=== PATIENT | female | born 1990 | race Caucasian/White ===

== ENCOUNTER 2017-01-29 17:56 | Emergency (ER) | payer MEDICAID, OTHER ==
[2017-01-29 18:03] VITALS: BP 120/78
== END 2017-01-29 18:34 | disposition left against medical advice (07) ==
LOC: ED 17:56
DX: Z53.21 Procedure and treatment not carried out due to patient leaving prior to being seen by health care provider (principal)

== ENCOUNTER 2017-06-09 01:20 | Outpatient (CLI) | payer MEDICAID | END 2017-06-09 01:21 | disposition critical access hospital (66) | LOC: EMS 01:20 | PROVIDERS: ATTEND Surgery | DX: R41.82 Altered mental status, unspecified (principal); Z72.89 Other problems related to lifestyle | CPT/HCPCS: A0425; A0429 ==

== ENCOUNTER 2017-06-09 01:27 | Emergency (ER) | payer MEDICAID ==
--- NOTE | 2017-06-09 02:20 | ED Physician Documentation ---
History of Present Illness - Stated complaint Stated Complaint: ETOH WITHDRAWL - Chief complaint Chief Complaint: MHE - History obtained from History obtained from: Patient - History of Present Illness Timing: Today Pain level now: 0 Improved by: no ameliorating factors Worsened by: no exacerbating factors - Additonal information Additional information: patient has been drinking on average a fifth of alcohol daily for weeks, stopped drinking 2 days ago and has been increasingly anxious and tremulous over past 24 hours. she says she has dealt with alcohol withdrawal previously and this feels similar Review of Systems Cardiac: reports: Reviewed and negative Respiratory: reports: Reviewed and negative GI: reports: Nausea (yesterday, resolved), Vomiting (yesterday, resolved). denies: Abdominal Pain PD PAST MEDICAL HISTORY - Past Medical History Respiratory: Asthma Psych: Depression, Anxiety, Other Derm: Psoriasis - Past Surgical History Past Surgical History: Yes - Present Medications Home Medications: Ambulatory Orders Medication Instructions Recorded Confirmed hydrOXYzine PAMOATE [Vistaril] 25 mg PO BID PRN 01/29/17 01/29/17 chlordiazePOXIDE [Librium] See Taper PO Q6H #15 capsule 06/09/17 - Allergies Allergies/Adverse Reactions: Allergies Allergy/AdvReac Type Severity Reaction Status Date / Time No Known Drug Allergies Allergy Unverified 06/09/17 01:30 - Social History Does the pt smoke?: Yes Smoking Status: Current every day smoker Does the pt drink ETOH?: Yes Does the pt have substance abuse?: No - Immunizations Immunizations are current?: Yes PD ED PE NORMAL - Vitals Vital signs reviewed: Yes - General General: Alert and oriented X 3, Well developed/nourished, Other (tremulous, anxious) - HEENT HEENT: PERRL, EOMI, Moist mucous membranes - Cardiac Cardiac: RRR, No murmur - Respiratory Respiratory: No respiratory distress, Clear bilaterally - Abdomen Abdomen: Soft, Non tender - Neuro Neuro: Alert and oriented X 3, geospatial image analyst 2-12 intact, No motor deficit, No sensory deficit, Normal speech Eye Opening: Spontaneous Motor: Obeys Commands Verbal: Oriented GCS Score: 15 Results - Vitals Vitals: Oxygen O2 Source Room air PD MEDICAL DECISION MAKING - ED course Complexity details: re-evaluated patient, considered differential, d/w patient ED course: given 2mg IM ativan and on reevaluation she appears comfortable and markedly less tremulous. she reports significant symptom relief. given 2mg PO ativan prior to discharge for residual tremulousness as well as rx for tapering librium. I instructed her to not take more librium than as prescribed and not to drink alcohol with librium, and that if she feels the librium as prescribed is not adequately controlling symptoms she needs to return to the ED. Departure - Departure Disposition: 01 Home, Self Care Clinical Impression: Anxiety, Alcohol withdrawal Condition: Good Instructions: ED Withdrawal Alcohol Follow-Up: Eli Andrade MD [Primary Care Provider] - Within 1 week Prescriptions: chlordiazePOXIDE [Librium] See Taper PO Q6H #15 capsule Discharge Date/Time: 06/09/17 04:08
[2017-06-09] MEDS ORDERED: LORazepam 2 MG/ML VIAL IM STA (02:34)
[2017-06-09] MEDS ORDERED: LORazepam 0.5 MG TABLET PO STA (03:49)
[2017-06-09 04:08] VITALS: BP 130/99
== END 2017-06-09 04:08 | disposition home or self-care (01) ==
LOC: EDUNIT# → ED 01:27
DX: F41.9 Anxiety disorder, unspecified (principal); F10.230 Alcohol dependence with withdrawal, uncomplicated; F17.200 Nicotine dependence, unspecified, uncomplicated
CPT/HCPCS: 96372; 99283; A9270; J2060

== ENCOUNTER 2017-12-05 04:24 | Outpatient (CLI) | payer MEDICAID | END 2017-12-05 04:25 | disposition critical access hospital (66) | LOC: EMS 04:24 | PROVIDERS: ATTEND Surgery | DX: T42.6X2A Poisoning by other antiepileptic and sedative-hypnotic drugs, intentional self-harm, initial encounter (principal); T42.4X2A Poisoning by benzodiazepines, intentional self-harm, initial encounter | CPT/HCPCS: A0425; A0427; A0999 ==

== ENCOUNTER 2017-12-05 04:40 | Emergency (ER) | payer MEDICAID ==
--- NOTE | 2017-12-05 04:52 | ED Physician Documentation ---
History of Present Illness - Stated complaint Stated Complaint: SI - History obtained from History obtained from: EMS - History of Present Illness Timing: Today - Additonal information Additional information: BIBA. Patient cannot contribute to HPI/ROS due to AMS. Per medics, patient's boyfriend called 911 because patient told him she might not wake up in the morning due to drinking alcohol and taking pills. Patient told medics she drank a pint of gin and took xanax and 4 ambien. She subsequently denied taking xanax. Review of Systems Unable to obtain: AMS, Intoxicated PD PAST MEDICAL HISTORY - Past Medical History Respiratory: Asthma Psych: Depression, Anxiety, Other Derm: Psoriasis - Past Surgical History Past Surgical History: Yes - Present Medications Home Medications: Ambulatory Orders Medication Instructions Recorded Confirmed hydrOXYzine PAMOATE [Vistaril] 25 mg PO BID PRN 01/29/17 01/29/17 chlordiazePOXIDE [Librium] See Taper PO Q6H #15 capsule 06/09/17 Lorazepam [Ativan] 1 mg PO BID PRN #5 tablet 12/05/17 - Allergies Allergies/Adverse Reactions: Allergies Allergy/AdvReac Type Severity Reaction Status Date / Time No Known Drug Allergies Allergy Unverified 06/09/17 01:30 - Social History Does the pt smoke?: Yes Smoking Status: Current every day smoker Does the pt drink ETOH?: Yes Does the pt have substance abuse?: No - Immunizations Immunizations are current?: Yes PD ED PE NORMAL - Vitals Vital signs reviewed: Yes - General General: No acute distress, Well developed/nourished, Other (drowsy, awakens to voice. oriented x 1) - HEENT HEENT: PERRL, EOMI, Moist mucous membranes - Cardiac Cardiac: RRR, No murmur - Respiratory Respiratory: No respiratory distress, Clear bilaterally - Abdomen Abdomen: Soft, Non tender - Derm Derm: Normal color, Warm and dry - Neuro Eye Opening: To Voice Motor: Obeys Commands Verbal: Confused GCS Score: 13 Results - Vitals Vitals: Vital Signs - 24 hr 12/05/17 04:43 Temperature 36.8 C Heart Rate 89 Respiratory 16 Rate Blood Pressure 108/54 L O2 Saturation 98 Oxygen O2 Source Room air PD MEDICAL DECISION MAKING - ED course Complexity details: reviewed old records, reviewed results, re-evaluated patient, considered differential, d/w patient, d/w family ED course: Patient's fiance came to ED (Juancarlos, goes by "AJ"). He says there was a stressful situation with family earlier tonight that upset patient. He says she locked herself in her room; he heard her crying and was concerned that she was not letting him in the room and thus he forced the lock and found her on the floor with an open prescription bottle and an open bottle of liquor. She told him she thought she might not wake up in the morning because of the liquor she drank and the pills she took. She told him she took ambien, but unknown amount. She also told him she drank liquor (a fifth of liquor, but not all of it was missing from the bottle). He says patient has a h/o alcoholism as well as SI, and was hospitalized last year in [place] (for both alcoholism and SI). He says she has been drinking alcohol for a few days straight (leading up to tonight). Signed case out to oncoming ED MD (Dr. Goodrich) at end of my shift (7 AM 12/05/17), as patient was still too somnolent for further assessment of suicidal intent. Departure - Departure Disposition: 01 Home, Self Care Clinical Impression: Alcoholic intoxication, Anxiety attack Condition: Good Instructions: ED Stress React, ED Alcohol Intoxication Follow-Up: Sangeeta Connors PA-C [Primary Care Provider] - Within 3 Days Prescriptions: Lorazepam [Ativan] 1 mg PO BID PRN #5 tablet PRN Reason: tremors Comments: KEEP YOUR SAFETY PLANS AND PSYCH APPOINTMENTS. TAKE THE ATIVAN TO PREVENT DTs. MAINTAIN SAFETY. IF WORSE RETURN TO THE E.R Forms: Activity restrictions Discharge Date/Time: 12/05/17 14:25
[2017-12-05] MEDS ORDERED: SODIUM CHLORIDE 0.9% 1,000 ML IV STA (05:07)
[2017-12-05 05:31] LABS: BASOPHILS % (AUTO) 0.5 %; EOSINOPHILS # (AUTO) 0.1 10^3/uL (0.0-0.7); EOSINOPHILS % (AUTO) 0.8 %; HGB - HEMOGLOBIN 13.3 g/dL (12.0-16.0); LYMPHOCYTES # (AUTO) 1.9 10^3/uL (1.5-3.5); LYMPHOCYTES % (AUTO) 25.2 %; MEAN CORPUSCULAR HGB CONC 34.4 g/dL (32.0-36.0); MEAN PLATELET VOLUME 7.7 fL (7.9-10.8); MONOCYTES # (AUTO) 0.4 10^3/uL (0.0-1.0); MONOCYTES % (AUTO) 5.8 %; NEUTROPHILS # (AUTO) 5.2 10^3/uL (1.5-6.6); NEUTROPHILS % (AUTO) 67.7 %; PLT - PLATELET COUNT 382 10^3/uL (130-450); RED BLOOD COUNT 4.04 10^6/uL (4.20-5.40); RED CELL DISTRIBUTION WIDTH 14.1 % (12.0-15.0); WHITE BLOOD COUNT 7.7 x10^3/uL (4.8-10.8)
[2017-12-05 05:40] LABS: BUN - BLOOD UREA NITROGEN 11 mg/dL (6-20); CARBON DIOXIDE - CO2 23 mmol/L (21-32); CHLORIDE 106 mmol/L (101-111); CREATININE 0.6 mg/dL (0.4-1.0); GFR - MDRD 120 (>89); GLUCOSE 159 mg/dL (70-100); SALICYLATE < 6.0 mg/dL; SODIUM 139 mmol/L (135-145)
[2017-12-05 06:10] LABS: ACETAMINOPHEN < 10 ug/mL (10-30)
[2017-12-05 08:33] LABS: BILIRUBIN,URINE NEGATIVE (NEGATIVE); GLUCOSE, URINE (UA) 250 mg/dL (NEGATIVE); KETONES,URINE (UA) 15 mg/dL (NEGATIVE); LEUKOCYTE ESTERASE, URINE NEGATIVE (NEGATIVE); NITRITE,URINE NEGATIVE (NEGATIVE); OCCULT BLOOD,URINE NEGATIVE (NEGATIVE); PROTEIN,URINE NEGATIVE (NEGATIVE); UROBILINOGEN,URINE 0.2 (NORMAL) E.U./dL (NORMAL)
[2017-12-05 08:36] LABS: CLARITY,URINE CLEAR (CLEAR); HCG UR QUAL NEGATIVE
[2017-12-05 09:32] LABS: MUDS CUTOFF CONCENTRATIONS CUTOFF CONC BELOW:
[2017-12-05 09:44] LABS: AMPHETAMINE SCREEN,URINE NEGATIVE (NEGATIVE); BENZODIAZEPINES SCREEN, URINE POSITIVE (NEGATIVE); COCAINE SCREEN URINE NEGATIVE (NEGATIVE); METHADONE SCREEN, URINE NEGATIVE (NEGATIVE); METHAMPHETAMINES SCREEN, URINE NEGATIVE (NEGATIVE); OPIATE SCREEN, URINE NEGATIVE (NEGATIVE); OXYCODONE SCREEN, URINE NEGATIVE (NEGATIVE); PROPOXYPHENE SCREEN, URINE NEGATIVE (NEGATIVE); TRICYCLIC ANTIDEPRESSANT,URINE NEGATIVE (NEGATIVE)
--- NOTE | 2017-12-05 13:54 | ED Physician Documentation ---
History of Present Illness - Stated complaint Stated Complaint: SI - Chief complaint Chief Complaint: MHE - History obtained from History obtained from: Patient - History of Present Illness Timing: Last night Pain level max: 0 Pain level now: 0 - Additonal information Additional information: SEE HPI from Dr Bautista who signed out the pt to me this morning. Pt claims drank alcohol and took an ambien pill so she can fall asleep. Denies SI, HI, hallucinations. Review of Systems Ten Systems: 10 systems reviewed and negative Constitutional: denies: Fever, Myalgias Cardiac: denies: Chest pain / pressure, Palpitations Respiratory: denies: Dyspnea, Cough GI: denies: Abdominal Pain, Nausea, Vomiting Neurologic: denies: Generalized weakness Psychiatric: reports: Anxiety, Insomnia. denies: Depressed, Suicidal, Homicidal, Hallucinations PD PAST MEDICAL HISTORY - Past Medical History Respiratory: Asthma Psych: Depression, Anxiety, Other Derm: Psoriasis - Past Surgical History Past Surgical History: Yes - Present Medications Home Medications: Ambulatory Orders Medication Instructions Recorded Confirmed hydrOXYzine PAMOATE [Vistaril] 25 mg PO BID PRN 01/29/17 01/29/17 chlordiazePOXIDE [Librium] See Taper PO Q6H #15 capsule 06/09/17 Lorazepam [Ativan] 1 mg PO BID PRN #5 tablet 12/05/17 - Allergies Allergies/Adverse Reactions: Allergies Allergy/AdvReac Type Severity Reaction Status Date / Time No Known Drug Allergies Allergy Unverified 06/09/17 01:30 - Social History Does the pt smoke?: Yes Smoking Status: Current every day smoker Does the pt drink ETOH?: Yes Does the pt have substance abuse?: No - Immunizations Immunizations are current?: Yes PD ED PE NORMAL - Vitals Vital signs reviewed: Yes - General General: Alert and oriented X 3, No acute distress, Well developed/nourished - HEENT HEENT: PERRL, EOMI, Moist mucous membranes - Neck Neck: Supple, no meningeal sign - Cardiac Cardiac: RRR, No murmur - Respiratory Respiratory: No respiratory distress, Clear bilaterally - Abdomen Abdomen: Normal bowel sounds, Soft, Non tender, Non distended - Derm Derm: Warm and dry - Extremities Extremities: No deformity - Neuro Neuro: Alert and oriented X 3, No motor deficit, Normal speech - Psych Psych: Normal mood, Normal affect Results - Vitals Vitals: Vital Signs - 24 hr 12/05/17 12/05/17 12/05/17 04:43 05:30 06:37 Temperature 36.8 C Heart Rate 89 99 91 Respiratory 16 17 19 Rate Blood Pressure 108/54 L 99/64 98/65 O2 Saturation 98 99 94 12/05/17 12/05/17 08:00 10:00 Temperature Heart Rate 88 98 Respiratory 14 20 Rate Blood Pressure 92/59 L 115/90 H O2 Saturation 98 95 Oxygen O2 Source Room air - Labs Labs: Laboratory Tests 12/05/17 12/05/17 12/05/17 05:20 05:20 08:30 WBC 7.7 RBC 4.04 L Hgb 13.3 Hct 38.8 MCV 96.0 MCH 33.0 H MCHC 34.4 RDW 14.1 Plt Count 382 MPV 7.7 L Neut # (Auto) 5.2 Lymph # (Auto) 1.9 [place] # (Auto) 0.4 Eos # (Auto) 0.1 Baso # (Auto) 0.0 Absolute Nucleated RBC 0.00 Nucleated RBC % 0.0 Sodium 139 Potassium 3.7 Chloride 106 Carbon Dioxide 23 Anion Gap 10.0 BUN 11 Creatinine 0.6 Estimated GFR (MDRD) 120 Glucose 159 H Calcium 8.0 L Urine Color DARK YELLOW Urine Clarity CLEAR Urine pH 6.0 Ur Specific [place] >=1.030 H Urine Protein NEGATIVE Urine Glucose (UA) 250 H Urine Ketones 15 H Urine Occult Blood NEGATIVE Urine Nitrite NEGATIVE Urine Bilirubin NEGATIVE Urine Urobilinogen 0.2 (NORMAL) Ur Leukocyte Esterase NEGATIVE Ur Microscopic Review NOT INDICATED Urine Culture Comments NOT INDICATED Urine HCG, Qual Salicylates < 6.0 Urine Opiates Screen Ur Oxycodone Screen Urine Methadone Screen Ur Propoxyphene Screen Acetaminophen < 10 L Ur Barbiturates Screen Ur Tricyclics Screen Ur Phencyclidine Scrn Ur Amphetamine Screen U Methamphetamines Scrn U Benzodiazepines Scrn Urine Cocaine Screen U Cannabinoids Screen Ethyl Alcohol 176.3 12/05/17 12/05/17 12/05/17 08:30 08:30 11:06 WBC RBC Hgb Hct MCV MCH MCHC RDW Plt Count MPV Neut # (Auto) Lymph # (Auto) [place] # (Auto) Eos # (Auto) Baso # (Auto) Absolute Nucleated RBC Nucleated RBC % Sodium Potassium Chloride Carbon Dioxide Anion Gap BUN Creatinine Estimated GFR (MDRD) Glucose Calcium Urine Color Urine Clarity Urine pH Ur Specific [place] >=1.030 H Urine Protein Urine Glucose (UA) Urine Ketones Urine Occult Blood Urine Nitrite Urine Bilirubin Urine Urobilinogen Ur Leukocyte Esterase Ur Microscopic Review Urine Culture Comments Urine HCG, Qual NEGATIVE Salicylates Urine Opiates Screen NEGATIVE Ur Oxycodone Screen NEGATIVE Urine Methadone Screen NEGATIVE Ur Propoxyphene Screen NEGATIVE Acetaminophen Ur Barbiturates Screen NEGATIVE Ur Tricyclics Screen NEGATIVE Ur Phencyclidine Scrn NEGATIVE Ur Amphetamine Screen NEGATIVE U Methamphetamines Scrn NEGATIVE U Benzodiazepines Scrn POSITIVE H Urine Cocaine Screen NEGATIVE U Cannabinoids Screen POSITIVE H Ethyl Alcohol 23.9 PD MEDICAL DECISION MAKING - ED course Complexity details: re-evaluated patient (0824 Pt woke up and was AAOX3, clear speech, ambulated to the bathroom with steady gait. No tremors. Wants breakfast. Denies any SI, HI, Hallucination. Agreed to consult SW for MH evaluation.), considered differential (alcohol intoxication, anxiety, depression), d/w patient, d/w family, d/w risk and insurance consultant ([id number] SW Paula evaluated pt, gillian and gillian's mom. Pt is not suicidal. Her family is dysfunctional. Pt will live with her fiance who will monitor pt closely. They have established a safety plan with the pt per and has a psych appt next week. 1400 Pt and fayeance confirmed safety plan and psych follow up. Pt requesting for pill that will help decrease her anxiety and her shakiness related to the alcohol. States has hx of alcoholism; usually drinks a fifth of liquor. Last drink was 8pm last night. Pt with mild hand tremors when arms are extended and mile tongue tremors. Will give ativan po now and give a prescription. Discussed with them alcohol withdrawal symptoms and DTs. They stated pt will return if worse.) Departure - Departure Disposition: 01 Home, Self Care Clinical Impression: Anxiety attack Alcoholic intoxication Qualifiers: Complication of substance-induced condition: uncomplicated Qualified Code(s): F10.920 - Alcohol use, unspecified with intoxication, uncomplicated Condition: Good Instructions: ED Alcohol Intoxication, ED Stress React Follow-Up: Sangeeta Connors PA-C [Primary Care Provider] - Within 3 Days Prescriptions: Lorazepam [Ativan] 1 mg PO BID PRN #5 tablet PRN Reason: tremors Comments: KEEP YOUR SAFETY PLANS AND PSYCH APPOINTMENTS. TAKE THE ATIVAN TO PREVENT DTs. MAINTAIN SAFETY. IF WORSE RETURN TO THE E.R Forms: Activity restrictions
[2017-12-05 14:03] VITALS: BP 112/77
== END 2017-12-05 14:25 | disposition home or self-care (01) ==
LOC: EDUNIT# → ED 04:40
DX: F41.9 Anxiety disorder, unspecified (principal); F10.120 Alcohol abuse with intoxication, uncomplicated; F17.200 Nicotine dependence, unspecified, uncomplicated; T42.6X2A Poisoning by other antiepileptic and sedative-hypnotic drugs, intentional self-harm, initial encounter; T51.0X2A Toxic effect of ethanol, intentional self-harm, initial encounter
CPT/HCPCS: 36415; 80048; 80306; 80307; 80320; 80329; 81001; 81003; 81025; 85025; 87086; 96360; 99283; 99284

== ENCOUNTER 2017-12-23 19:02 | Emergency (ER) | payer MEDICAID ==
--- NOTE | 2017-12-23 20:32 | ED Physician Documentation ---
PD HPI MHE - Stated complaint Stated Complaint: SI - Chief complaint Chief Complaint: MHE - History obtained from History obtained from: Patient, Family, Police - History of Present Illness Primary symptom: Suicidal ideation, Self harm - cut Pain level now: 0 Recently seen: Emergency Dept (T+R earlier this month for overdose) - Additional information Additional information: patient is not forthcoming with information, thus limited in contribution to HPI and ROS. Majority of HPI is from family and police. Family and fiance report that patient has been making suicidal threats, both verbally and via text messages, and that she has been cutting herself. She had bought a knife last week and family confiscated this when they found it; she subsequently bought razor blades and when family confiscated those, she bought a box sealing machine operator. She has been locking herself in her room at times and she did this tonight again and family called 911. Patient had fled the house by the time police arrived and she was then spotted and ran from police. Police were able to catch her and brought patient to ED for evaluation. Shortly after ED arrival, she ran out of the ED and eventually was found in her finace's parents' house, having entered the house without permission. She was brought back to ED and placed in restraints due to flight risk. Patient denies SI on my HPI. Review of Systems Cardiac: reports: Reviewed and negative Respiratory: reports: Reviewed and negative GI: reports: Reviewed and negative Skin: reports: Abrasion (s) (left wrist) PD PAST MEDICAL HISTORY - Past Medical History Respiratory: Asthma Psych: Depression, Anxiety, Other Derm: Psoriasis - Past Surgical History Past Surgical History: Yes - Present Medications Home Medications: Ambulatory Orders Medication Instructions Recorded Confirmed hydrOXYzine PAMOATE [Vistaril] 25 mg PO BID PRN 01/29/17 01/29/17 chlordiazePOXIDE [Librium] See Taper PO Q6H #15 capsule 06/09/17 Lorazepam [Ativan] 1 mg PO BID PRN #5 tablet 12/05/17 Albuterol Sulf [Ventolin Hfa 1 - 2 puffs INH Q4HR PRN #1 inhaler 12/24/17 Inhaler] Clobetasol 0.05% Oint [Temovate 1 applic TOP BID #30 g 12/24/17 0.05% Oint] - Allergies Allergies/Adverse Reactions: Allergies Allergy/AdvReac Type Severity Reaction Status Date / Time No Known Drug Allergies Allergy Unverified 06/09/17 01:30 - Social History Does the pt smoke?: Yes Smoking Status: Current every day smoker Does the pt drink ETOH?: Yes Does the pt have substance abuse?: No - Immunizations Immunizations are current?: Yes PD ED PE NORMAL - Vitals Vital signs reviewed: Yes - General General: Alert and oriented X 3, No acute distress, Well developed/nourished - HEENT HEENT: PERRL, EOMI, Moist mucous membranes - Cardiac Cardiac: RRR, No murmur - Respiratory Respiratory: No respiratory distress, Clear bilaterally - Abdomen Abdomen: Soft, Non tender - Derm Derm: Normal color, Warm and dry - Extremities Extremities: Other (superficial linear abrasions left wrist, flexor surface) - Neuro Neuro: Alert and oriented X 3, Normal speech Eye Opening: Spontaneous Motor: Obeys Commands Verbal: Oriented GCS Score: 15 PD ED PE EXPANDED - Extremities Extremities: Other (bruises, abrasions to bilateral knees and left anterior pre- tibial surface without bony tenderness or deformity) Results - Vitals Vitals: Vital Signs - 24 hr 12/24/17 12/24/17 06:46 19:15 Temperature 36.1 C L 36.9 C Heart Rate 71 76 Respiratory 16 16 Rate Blood Pressure 98/60 132/86 H O2 Saturation 97 100 Oxygen O2 Source Room air - Labs Labs: Laboratory Tests 12/23/17 12/23/17 12/23/17 20:40 20:40 21:00 WBC 6.4 RBC 4.17 L Hgb 14.2 Hct 40.5 MCV 96.9 MCH 34.1 H MCHC 35.2 RDW 14.8 Plt Count 339 MPV 7.7 L Neut # (Auto) 3.5 Lymph # (Auto) 2.2 Jerome # (Auto) 0.7 Eos # (Auto) 0.1 Baso # (Auto) 0.0 Absolute Nucleated RBC 0.01 Nucleated RBC % 0.1 Sodium Potassium Chloride Carbon Dioxide Anion Gap BUN Creatinine Estimated GFR (MDRD) Glucose Calcium Urine Color YELLOW Urine Clarity CLEAR Urine pH 6.0 Ur Specific [place] >=1.030 H >=1.030 H Urine Protein 100 H Urine Glucose (UA) NEGATIVE Urine Ketones TRACE Urine Occult Blood TRACE-INTA Urine Nitrite NEGATIVE Urine Bilirubin NEGATIVE Urine Urobilinogen 0.2 (NORMAL) Ur Leukocyte Esterase NEGATIVE Urine RBC None Seen Urine WBC 0-3 Ur Squamous Epith Cells FEW Squamous Urine Bacteria None Seen Urine Casts 0-2 Hyaline Casts Urine Mucus Moderate Strands Ur Microscopic Review INDICATED Urine Culture Comments NOT INDICATED Urine HCG, Qual NEGATIVE Salicylates Urine Opiates Screen NEGATIVE Ur Oxycodone Screen NEGATIVE Urine Methadone Screen NEGATIVE Ur Propoxyphene Screen NEGATIVE Acetaminophen Ur Barbiturates Screen NEGATIVE Ur Tricyclics Screen NEGATIVE Ur Phencyclidine Scrn NEGATIVE Ur Amphetamine Screen NEGATIVE U Methamphetamines Scrn NEGATIVE U Benzodiazepines Scrn POSITIVE H Urine Cocaine Screen NEGATIVE U Cannabinoids Screen POSITIVE H Ethyl Alcohol 12/23/17 12/24/17 21:00 06:54 WBC RBC Hgb Hct MCV MCH MCHC RDW Plt Count MPV Neut # (Auto) Lymph # (Auto) Jerome # (Auto) Eos # (Auto) Baso # (Auto) Absolute Nucleated RBC Nucleated RBC % Sodium 142 Potassium 3.8 Chloride 105 Carbon Dioxide 25 Anion Gap 12.0 BUN 9 Creatinine 0.8 Estimated GFR (MDRD) 86 L Glucose 89 Calcium 9.0 Urine Color Urine Clarity Urine pH Ur Specific [place] Urine Protein Urine Glucose (UA) Urine Ketones Urine Occult Blood Urine Nitrite Urine Bilirubin Urine Urobilinogen Ur Leukocyte Esterase Urine RBC Urine WBC Ur Squamous Epith Cells Urine Bacteria Urine Casts Urine Mucus Ur Microscopic Review Urine Culture Comments Urine HCG, Qual Salicylates < 6.0 Urine Opiates Screen Ur Oxycodone Screen Urine Methadone Screen Ur Propoxyphene Screen Acetaminophen < 10 L Ur Barbiturates Screen Ur Tricyclics Screen Ur Phencyclidine Scrn Ur Amphetamine Screen U Methamphetamines Scrn U Benzodiazepines Scrn Urine Cocaine Screen U Cannabinoids Screen Ethyl Alcohol 315.0 9.7 PD MEDICAL DECISION MAKING - ED course Complexity details: reviewed old records, reviewed results, re-evaluated patient, considered differential, d/w patient, d/w family ED course: High ETOH level necessitating long stay in ED awaiting appropriate level to obtain MHP evaluation. Care turned over to Dr. Najera at 7 AM pending MHP evaluation Departure - Departure Disposition: 65 Psych Hosp/Unit DC/Xfer Clinical Impression: Suicidal ideation, Anxiety, Psoriasis Depression Qualifiers: Depression Type: unspecified Qualified Code(s): F32.9 - Major depressive disorder, single episode, unspecified Alcohol intoxication Qualifiers: Complication of substance-induced condition: uncomplicated Qualified Code(s): F10.920 - Alcohol use, unspecified with intoxication, uncomplicated Condition: Stable Prescriptions: Albuterol Sulf [Ventolin Hfa Inhaler] 1 - 2 puffs INH Q4HR PRN #1 inhaler PRN Reason: Shortness Of Air/Wheezing Clobetasol 0.05% Oint [Temovate 0.05% Oint] 1 applic TOP BID #30 g Discharge Date/Time: 12/24/17 19:20
[2017-12-23 20:54] LABS: MUDS CUTOFF CONCENTRATIONS CUTOFF CONC BELOW:
[2017-12-23 21:01] LABS: BILIRUBIN,URINE NEGATIVE (NEGATIVE); GLUCOSE, URINE (UA) NEGATIVE (NEGATIVE); KETONES,URINE (UA) TRACE mg/dL (NEGATIVE); LEUKOCYTE ESTERASE, URINE NEGATIVE (NEGATIVE); NITRITE,URINE NEGATIVE (NEGATIVE); OCCULT BLOOD,URINE TRACE-INTA (NEGATIVE); PROTEIN,URINE 100 mg/dL (NEGATIVE); UROBILINOGEN,URINE 0.2 (NORMAL) E.U./dL (NORMAL)
[2017-12-23 21:02] LABS: CLARITY,URINE CLEAR (CLEAR); HCG UR QUAL NEGATIVE
[2017-12-23 21:07] LABS: BASOPHILS % (AUTO) 0.5 %; EOSINOPHILS # (AUTO) 0.1 10^3/uL (0.0-0.7); EOSINOPHILS % (AUTO) 0.9 %; HGB - HEMOGLOBIN 14.2 g/dL (12.0-16.0); LYMPHOCYTES # (AUTO) 2.2 10^3/uL (1.5-3.5); LYMPHOCYTES % (AUTO) 34.5 %; MEAN CORPUSCULAR HEMOGLOBIN 34.1 pg (27.0-31.0); MEAN CORPUSCULAR HGB CONC 35.2 g/dL (32.0-36.0); MEAN CORPUSCULAR VOLUME 96.9 fL (81.0-99.0); MEAN PLATELET VOLUME 7.7 fL (7.9-10.8); MONOCYTES # (AUTO) 0.7 10^3/uL (0.0-1.0); MONOCYTES % (AUTO) 10.2 %; NEUTROPHILS # (AUTO) 3.5 10^3/uL (1.5-6.6); NEUTROPHILS % (AUTO) 53.9 %; PLT - PLATELET COUNT 339 10^3/uL (130-450); RED BLOOD COUNT 4.17 10^6/uL (4.20-5.40); RED CELL DISTRIBUTION WIDTH 14.8 % (12.0-15.0); WHITE BLOOD COUNT 6.4 x10^3/uL (4.8-10.8)
[2017-12-23 21:09] LABS: BACTERIA,URINE None Seen /HPF (None Seen); CASTS, URINE 0-2 Hyaline Casts /LPF; MUCUS,URINE Moderate Strands; RBC,URINE None Seen /HPF (0-5); SQUAMOUS EPITHELIAL CELL,UR FEW Squamous (<= Few)
[2017-12-23 21:10] LABS: AMPHETAMINE SCREEN,URINE NEGATIVE (NEGATIVE); BENZODIAZEPINES SCREEN, URINE POSITIVE (NEGATIVE); COCAINE SCREEN URINE NEGATIVE (NEGATIVE); METHADONE SCREEN, URINE NEGATIVE (NEGATIVE); METHAMPHETAMINES SCREEN, URINE NEGATIVE (NEGATIVE); OPIATE SCREEN, URINE NEGATIVE (NEGATIVE); OXYCODONE SCREEN, URINE NEGATIVE (NEGATIVE); PROPOXYPHENE SCREEN, URINE NEGATIVE (NEGATIVE); TRICYCLIC ANTIDEPRESSANT,URINE NEGATIVE (NEGATIVE)
[2017-12-23 21:20] LABS: ACETAMINOPHEN < 10 ug/mL (10-30); BUN - BLOOD UREA NITROGEN 9 mg/dL (6-20); CARBON DIOXIDE - CO2 25 mmol/L (21-32); CHLORIDE 105 mmol/L (101-111); CREATININE 0.8 mg/dL (0.4-1.0); GFR - MDRD 86 (>89); GLUCOSE 89 mg/dL (70-100); SALICYLATE < 6.0 mg/dL; SODIUM 142 mmol/L (135-145)
[2017-12-23] MEDS ORDERED: LORazepam 0.5 MG TABLET PO STA (22:40)
[2017-12-24] MEDS ORDERED: ESCITALOPRAM 10 MG TABLET PO STA ×2 (16:15→16:49)
[2017-12-24] MEDS ORDERED: hydrOXYzine PAMOATE 25 MG CAPSULE PO STA (16:15)
[2017-12-24] MEDS ORDERED: LORazepam 0.5 MG TABLET PO STA (16:15)
--- NOTE | 2017-12-24 16:15 | ED Physician Documentation ---
ED Addendum - Addendum Addendum: 12/24/17 16:04 The patient has been resting well here in has been more cooperative through the morning. She was able to be let out of her restraints and promises not to elope. She is being watched carefully. She has not taken her daily medicines which includes S citalopram hydroxyzine and another medicine for anxiety that begins with the P. We will track that down to the pharmacy and provide her doses. We could also add a Ativan dose. She does seem a little anxious when I talked to her. She denies any other complaints new except for ongoing psoriatic sores on her knees ankle and hand. She does ask for some Band-Aids and clobetasol ointment. We will try to provide those for her. The DCR did see her and plans on involuntary admission. We will transfer her. The facility cannot accept her prior to 7:00 so will be slight delay in the calling for the ambulance.
[2017-12-24] MEDS ORDERED: CLOBETASOL 0.05% OINT 15 GM TUBE TOP SCH (16:39)
[2017-12-24] MEDS ORDERED: PROPRANOLOL 10 MG TABLET PO STA (16:50)
[2017-12-24 19:17] VITALS: BP 132/86
== END 2017-12-24 19:20 ==
LOC: EDUNIT# → EEVIPCON 19:02 → ED 19:02
DX: R45.851 Suicidal ideations (principal); F41.9 Anxiety disorder, unspecified; F32.9 Major depressive disorder, single episode, unspecified; F10.129 Alcohol abuse with intoxication, unspecified; L40.9 Psoriasis, unspecified; F17.200 Nicotine dependence, unspecified, uncomplicated; Z78.1 Physical restraint status; Y90.8 Blood alcohol level of 240 mg/100 ml or more
CPT/HCPCS: 36415; 80048; 80306; 80307; 80320; 80329; 81001; 81025; 85025; 99284; A9270; 81003; 87086

== ENCOUNTER 2018-04-23 11:45 | Outpatient (CLI) | payer MEDICAID ==
[2018-04-23 19:01] LABS: BASOPHILS % (AUTO) 0.4 %; EOSINOPHILS # (AUTO) 0.1 10^3/uL (0.0-0.7); EOSINOPHILS % (AUTO) 2.2 %; HGB - HEMOGLOBIN 13.4 g/dL (12.0-16.0); LYMPHOCYTES # (AUTO) 1.8 10^3/uL (1.5-3.5); MEAN CORPUSCULAR HEMOGLOBIN 30.3 pg (27.0-31.0); MEAN CORPUSCULAR VOLUME 91.8 fL (81.0-99.0); MEAN PLATELET VOLUME 8.5 fL (7.9-10.8); MONOCYTES # (AUTO) 0.5 10^3/uL (0.0-1.0); MONOCYTES % (AUTO) 9.4 %; NEUTROPHILS # (AUTO) 3.1 10^3/uL (1.5-6.6); PLT - PLATELET COUNT 350 10^3/uL (130-450); RED BLOOD COUNT 4.41 10^6/uL (4.20-5.40); RED CELL DISTRIBUTION WIDTH 13.4 % (12.0-15.0); WHITE BLOOD COUNT 5.6 x10^3/uL (4.8-10.8)
[2018-04-23 19:22] LABS: HB2 TOTAL 14.2 g/dL; HEMOGLOBIN A1C 0.46 g/dL; HEMOGLOBIN A1C % 5.1 % (4.6-6.2)
[2018-04-23 19:23] LABS: ALBUMIN 4.3 g/dL (3.2-5.5); ALBUMIN/GLOBULIN RATIO 1.4 (1.0-2.2); ALKALINE PHOSPHATASE 34 IU/L (42-121); ALT ALANINE AMINOTRANSFERASE 14 IU/L (10-60); AST ASPARTATE AMINOTRANSFERASE 23 IU/L (10-42); BILIRUBIN,TOTAL 0.8 mg/dL (0.2-1.0); BUN - BLOOD UREA NITROGEN 14 mg/dL (6-20); CALCIUM 9.3 mg/dL (8.5-10.3); CARBON DIOXIDE - CO2 28 mmol/L (21-32); CHLORIDE 101 mmol/L (101-111); CHOL/HDL RATIO 3.4 (<4.4); CHOLESTEROL 258 mg/dL; CREATININE 0.7 mg/dL (0.4-1.0); GFR - MDRD 100 (>89); GLUCOSE 83 mg/dL (70-100); HDL CHOLESTEROL 76 mg/dL; LDL CHOLESTEROL,CALCULATED 167 mg/dL; LDL/HDL RATIO 2.2 (<4.4); SODIUM 138 mmol/L (135-145); TOTAL PROTEIN 7.3 g/dL (6.7-8.2); VLDL CHOLESTEROL 15 mg/dL
== END 2018-04-23 11:46 | disposition home or self-care (01) ==
LOC: LAB.WCP 11:45
PROVIDERS: ATTEND Family Medicine
DX: Z00.00 Encounter for general adult medical examination without abnormal findings (principal)
CPT/HCPCS: 36415; 80053; 80061; 83036; 83721; 84443; 85025

== ENCOUNTER 2019-09-02 08:00 | Outpatient (CLI) | payer MEDICAID ==
[2019-09-02 21:14] LABS: CANDIDA GROUP DNA POSITIVE (NEGATIVE); CANDIDA KRUSEI DNA NEGATIVE (NEGATIVE); TRICHOMONAS VAGINALIS DNA NEGATIVE (NEGATIVE)
[2019-09-02 22:51] LABS: TRICHOMONAS VAGINALIS DNA NEGATIVE (NEGATIVE)
== END 2019-09-02 23:59 | disposition home or self-care (01) ==
LOC: LAB.R 08:00
PROVIDERS: ATTEND Advanced Practice Midwife
DX: Z11.3 Encounter for screening for infections with a predominantly sexual mode of transmission (principal)
CPT/HCPCS: 87491; 87591; 87661; 87801

== ENCOUNTER 2020-06-30 08:00 | Outpatient (CLI) | payer MEDICAID | END 2020-06-30 23:59 | LOC: LAB.N 08:00 | PROVIDERS: ATTEND Family Medicine | DX: N39.0 Urinary tract infection, site not specified (principal) | CPT/HCPCS: 87086 ==

== ENCOUNTER 2020-09-09 10:35 | Outpatient (CLI) | payer MEDICAID | END 2020-09-09 10:36 | disposition EMS.NT | LOC: EMS 10:35 | DX: Z04.1 Encounter for examination and observation following transport accident (principal) ==

== ENCOUNTER 2020-11-29 16:42 | Outpatient (CLI) | payer MEDICAID ==
--- NOTE | 2020-11-29 19:08 | Ultrasound Report ---
PROCEDURE: Pelvic w/Transvaginal INDICATIONS: AMENORRHEA TECHNIQUE: Real-time scanning was performed of the pelvic organs, with image documentation. Additional endovagi nal scanning was necessary due to incomplete visualization of the adnexal and endometrial structures by transabdominal scanning. COMPARISON: None. FINDINGS: No pathologic free abdominal or pelvic fluid. Uterus: Uterus is normal in size at 7 x 2.6 x 3.5 cm. The endometrium measures 3.5 mm in combined t hickness. There is no endometrial mass or fluid. No discrete uterine fibroid. Small nabothian cysts are noted within endocervical canal. Ovaries: Right ovary measures 2. 2 x 2 by 2.4 cm in size. Left ovary measures 4.1 x 3.3 x 4 cm in si ze. A 3.7 x 3.4 x 3.4 cm cyst is seen in left ovary containing thin internal septation. Prominent 1.2 x 1.1 x 1.2 cm follicle is noted in right ovary. IMPRESSION: 1. Normal-appearing uterus and endometrium. 2. 3.7 x 3.4 x 3.4 left ovarian cystic structure with internal septation. Sonographic follow-up is re commended. Dominant follicle seen in right ovary measures 1.2 cm in size. No gross solid-appearing ov martín lesion. Reviewed by: Juan Wallace MD on 11/29/2020 7:07 PM PDT Approved by: Juan Wallace MD on 11/29/2020 7:07 PM PDT Station ID: [id number]
== END 2020-11-29 16:43 | disposition home or self-care (01) ==
LOC: DI 16:42
PROVIDERS: ATTEND Obstetrics & Gynecology
DX: N91.2 Amenorrhea, unspecified (principal); N83.202 Unspecified ovarian cyst, left side

== ENCOUNTER 2020-12-23 10:58 | Outpatient (CLI) | payer MEDICAID ==
[2020-12-23 14:29] LABS: ALBUMIN 4.3 g/dL (3.2-5.5); ALBUMIN/GLOBULIN RATIO 1.5 (1.0-2.2); BILIRUBIN,TOTAL 0.7 mg/dL (0.2-1.0); CALCIUM 8.5 mg/dL (8.5-10.3); CREATININE 0.5 mg/dL (0.4-1.0); POTASSIUM 3.6 mmol/L (3.5-5.0); TOTAL PROTEIN 7.1 g/dL (6.7-8.2)
[2020-12-23 14:34] LABS: ESTIMATED AVERAGE GLUCOSE 111 mg/dL (70-100); HEMOGLOBIN A1c% 5.5 % (4.27-6.07)
[2020-12-23 14:45] LABS: THYROID STIMULATING HORMONE 0.82 uIU/mL (0.34-5.60)
[2020-12-23 14:46] LABS: FREE T4 (FREE THYROXINE) 0.94 ng/dL (0.58-1.64)
[2020-12-23 14:49] LABS: PROLACTIN 5.04 ng/mL
[2020-12-23 15:12] LABS: FOLLICLE STIMULATING HORMONE 21.4 mIU/mL
== END 2020-12-23 10:59 | disposition home or self-care (01) ==
LOC: LAB.N 10:58
PROVIDERS: ATTEND Obstetrics & Gynecology
DX: E55.9 Vitamin D deficiency, unspecified (principal); N91.2 Amenorrhea, unspecified; Z13.1 Encounter for screening for diabetes mellitus; Z87.19 Personal history of other diseases of the digestive system
CPT/HCPCS: 36415; 80053; 81599; 82306; 82670; 83001; 83036; 83516; 83520; 84146; 84403; 84439; 84443; 86255; 86762; 86787

== ENCOUNTER 2021-01-05 15:28 | Outpatient (CLI) | payer MEDICAID ==
--- NOTE | 2021-01-05 16:53 | XRAY Report ---
PROCEDURE: Hand 3 View RT INDICATIONS: EVAL FOR HARDWARE FAILURE TECHNIQUE: 3 views of the hand(s) acquired. COMPARISON: None. FINDINGS: Bones: No fractures or dislocations. No suspicious bony lesions. Expected postoperative alignment of fifth metacarpal plate and screw fixation. No evidence of hardware failure or loosening. Soft tissues: No suspicious soft tissue calcifications. IMPRESSION: Expected postoperative appearance. Reviewed by: Deep Longo MD on 01/05/2021 4:52 PM PST Approved by: Deep Longo MD on 01/05/2021 4:52 PM PST Station ID: [id number]
== END 2021-01-05 15:29 | disposition home or self-care (01) ==
LOC: DI.N 15:28
PROVIDERS: ATTEND Physician Assistant Medical
DX: S62.91XS Unspecified fracture of right hand, sequela (principal)

== ENCOUNTER 2021-01-11 11:52 | Outpatient (CLI) | payer MEDICAID ==
[2021-01-12 05:16] LABS: PROGESTERONE 1.1 ng/mL
== END 2021-01-11 11:53 | disposition home or self-care (01) ==
LOC: LAB.N 11:52
PROVIDERS: ATTEND Obstetrics & Gynecology
DX: E28.1 Androgen excess (principal)
CPT/HCPCS: 36415; 81599; 82627; 83498; 84144; 84403

== ENCOUNTER 2021-01-16 08:15 | Outpatient (CLI) | payer MEDICAID | END 2021-01-16 08:16 | disposition home or self-care (01) | LOC: LAB.N 08:15 | PROVIDERS: ATTEND Obstetrics & Gynecology | DX: N91.2 Amenorrhea, unspecified (principal) | CPT/HCPCS: 36415; 81599; 82670; 83001; 83520 ==

== ENCOUNTER 2021-04-05 17:00 | Outpatient (CLI) | payer MEDICAID | END 2021-04-05 17:01 | disposition home or self-care (01) | LOC: LAB.N 17:00 | PROVIDERS: ATTEND Physician Assistant Medical | DX: K14.6 Glossodynia (principal) | CPT/HCPCS: 36415; 82607 ==

== ENCOUNTER 2021-05-25 18:33 | Outpatient (CLI) | payer MEDICAID ==
--- NOTE | 2021-05-25 20:07 | XRAY Report ---
PROCEDURE: Ankle 3 View LT INDICATIONS: Left ankle sprain TECHNIQUE: 3 views of the left ankle were acquired. COMPARISON: None FINDINGS: Bones: No fractures or dislocations. Ankle mortise is normally aligned. No suspicious bony lesions . Soft tissues: No tibiotalar joint effusion. Achilles tendon appears normal. IMPRESSION: Normal. Reviewed by: Ge Chow MD on 05/25/2021 8:06 PM PDT Approved by: Ge Chow MD on 05/25/2021 8:06 PM PDT Station ID: [id number]
== END 2021-05-25 18:34 | disposition home or self-care (01) ==
LOC: DI.N 18:33
PROVIDERS: ATTEND Physician Assistant Medical
DX: S93.492A Sprain of other ligament of left ankle, initial encounter (principal)

== ENCOUNTER 2021-06-08 08:00 | Outpatient (CLI) | payer MEDICAID | END 2021-06-08 08:01 | disposition home or self-care (01) | LOC: LAB.N 08:00 | PROVIDERS: ATTEND Physician Assistant Medical | DX: R07.0 Pain in throat (principal); Z20.822 Contact with and (suspected) exposure to COVID-19 ==

== ENCOUNTER 2021-08-31 12:36 | Emergency (ER) | payer MEDICAID ==
--- OUTSIDE RECORDS SUMMARY | 2021-08-31 13:37 | EXTERNAL MEDICAL SUMMARY RPT | Continuity of Care Document ---
:1990 Author Organization [facility] Address [address] [place] [address] Phone Allergies and Intolerances date description facility type (no date) No Known Drug Allergies Merged With [facility] (unkn own) Encounters No information. Functional Status No information. Immunizations No information. Medications No information. Problems No information. Procedures date description facility [id number] General Physician Merged With [facility] Results/Labs No information. Social History date description facility (no date) Smokes tobacco daily (finding) [facility] With [facility] Vital Signs No information.
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
[2021-08-31 14:55] LABS: HCG UR QUAL NEGATIVE
[2021-08-31 15:28] VITALS: BP 126/78
[2021-08-31 15:43] LABS: HIV RAPID SCREEN NEGATIVE (NEGATIVE)
[2021-09-01 00:11] LABS: CHLAMYDIA TRACHOMATIS DNA NEGATIVE (NEGATIVE); NEISSERIA GONORRHOEAE DNA NEGATIVE (NEGATIVE); TRICHOMONAS VAGINALIS DNA NEGATIVE (NEGATIVE)
[2021-09-01 05:11] LABS: HBsAG SCREEN Negative (Negative); HCV AB 0.1 s/co ratio (0.0-0.9); HEPATITIS B CORE IGM AB Negative (Negative)
== END 2021-08-31 15:00 | disposition home or self-care (01) ==
LOC: ED 12:36
DX: R41.3 Other amnesia (principal); F17.200 Nicotine dependence, unspecified, uncomplicated
CPT/HCPCS: 81025; 86703; 86705; 86709; 86780; 86803; 87340; 87491; 87591; 87661; 99281; 99283

== ENCOUNTER 2021-09-01 10:29 | Outpatient (CLI) | payer MEDICAID | END 2021-09-01 10:30 | disposition critical access hospital (66) | LOC: EMS 10:29 | DX: R46.89 Other symptoms and signs involving appearance and behavior (principal); R45.89 Other symptoms and signs involving emotional state | CPT/HCPCS: A0425; A0429; A0999 ==

== ENCOUNTER 2021-09-01 10:49 | Emergency (ER) | payer MEDICAID ==
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
[2021-09-01 11:31] LABS: BASOPHILS % (AUTO) 0.2 %; EOSINOPHILS % (AUTO) 0.2 %; HCT - HEMATOCRIT 38.2 % (37.0-47.0); HGB - HEMOGLOBIN 13.5 g/dL (12.0-16.0); LYMPHOCYTES % (AUTO) 11.8 %; MEAN CORPUSCULAR HEMOGLOBIN 31.9 pg (27.0-31.0); MEAN CORPUSCULAR HGB CONC 35.3 g/dL (32.0-36.0); MEAN CORPUSCULAR VOLUME 90.3 fL (81.0-99.0); MEAN PLATELET VOLUME 10.1 fL (7.9-10.8); MONOCYTES # (AUTO) 0.9 10^3/uL (0.0-1.0); MONOCYTES % (AUTO) 10.2 %; NEUTROPHILS # (AUTO) 6.6 10^3/uL (1.5-6.6); NEUTROPHILS % (AUTO) 77.2 %; PLT - PLATELET COUNT 164 10^3/uL (130-450); RED BLOOD COUNT 4.23 10^6/uL (4.20-5.40); RED CELL DISTRIBUTION WIDTH 12.2 % (12.0-15.0); WHITE BLOOD COUNT 8.5 x10^3/uL (4.8-10.8)
--- OUTSIDE RECORDS SUMMARY | 2021-09-01 11:39 | EXTERNAL MEDICAL SUMMARY RPT | Continuity of Care Document ---
:1990 Author Organization [facility] Address [address] [place] [address] Phone Allergies and Intolerances date description facility type (no date) No Known Drug Allergies [facility] (unkn own) Encounters No information. Functional Status No information. Immunizations No information. Medications No information. Problems No information. Procedures date description facility [id number] General Physician [facility] Results/Labs No information. Social History date description facility (no date) Smokes tobacco daily (finding) [facility] Vital Signs No information.
[2021-09-01 11:45] LABS: ACETAMINOPHEN < 10 ug/mL (10-30); ALBUMIN 4.5 g/dL (3.2-5.5); ALBUMIN/GLOBULIN RATIO 1.5 (1.0-2.2); ALKALINE PHOSPHATASE 46 IU/L (42-121); ALT ALANINE AMINOTRANSFERASE 65 IU/L (10-60); AST ASPARTATE AMINOTRANSFERASE 129 IU/L (10-42); BILIRUBIN,TOTAL 0.8 mg/dL (0.2-1.0); BUN - BLOOD UREA NITROGEN 15 mg/dL (6-20); CALCIUM 9.4 mg/dL (8.5-10.3); CARBON DIOXIDE - CO2 20 mmol/L (21-32); CHLORIDE 102 mmol/L (101-111); CREATININE 0.8 mg/dL (0.4-1.0); ETOH - ETHANOL < 5.0 mg/dL; GFR - MDRD 84 (>89); GLUCOSE 104 mg/dL (70-100); LIPASE 39 U/L (22-51); SALICYLATE < 6.0 mg/dL; SODIUM 138 mmol/L (135-145); TOTAL PROTEIN 7.6 g/dL (6.7-8.2)
[2021-09-01 12:25] LABS: MUDS CUTOFF CONCENTRATIONS CUTOFF CONC BELOW:
[2021-09-01 12:30] LABS: GLUCOSE, URINE (UA) NEGATIVE (NEGATIVE); KETONES,URINE (UA) 40 mg/dL (NEGATIVE); LEUKOCYTE ESTERASE, URINE NEGATIVE (NEGATIVE); NITRITE,URINE NEGATIVE (NEGATIVE); OCCULT BLOOD,URINE SMALL (NEGATIVE); PROTEIN,URINE TRACE mg/dL (NEGATIVE); UROBILINOGEN,URINE 0.2 (NORMAL) E.U./dL (NORMAL)
[2021-09-01 12:43] LABS: BILIRUBIN,URINE NEGATIVE (NEGATIVE); CLARITY,URINE CLEAR (CLEAR); HCG UR QUAL NEGATIVE; ICTOTEST,URINE NEGATIVE
[2021-09-01 12:44] LABS: AMPHETAMINE SCREEN,URINE NEGATIVE (NEGATIVE); BACTERIA,URINE None Seen /HPF (None Seen); BARBITURATE SCREEN,UR NEGATIVE (NEGATIVE); BENZODIAZEPINES SCREEN, URINE NEGATIVE (NEGATIVE); COCAINE SCREEN URINE NEGATIVE (NEGATIVE); METHADONE SCREEN, URINE NEGATIVE (NEGATIVE); METHAMPHETAMINES SCREEN, URINE NEGATIVE (NEGATIVE); OPIATE SCREEN, URINE NEGATIVE (NEGATIVE); OXYCODONE SCREEN, URINE NEGATIVE (NEGATIVE); PROPOXYPHENE SCREEN, URINE NEGATIVE (NEGATIVE); RBC,URINE 0-5 /HPF (0-5); SQUAMOUS EPITHELIAL CELL,UR FEW Squamous (<= Few); THC CANNABINOID SCREEN, URINE NEGATIVE (NEGATIVE); TRICYCLIC ANTIDEPRESSANT,URINE NEGATIVE (NEGATIVE); WBC,URINE 0-3 /HPF (0-5)
[2021-09-01 14:33] VITALS: BP 122/90
== END 2021-09-01 17:48 | disposition home or self-care (01) ==
LOC: EDUNIT# → ED 10:49
DX: F10.10 Alcohol abuse, uncomplicated (principal); F32.89 Other specified depressive episodes; Z20.822 Contact with and (suspected) exposure to COVID-19; F19.11 Other psychoactive substance abuse, in remission; F17.200 Nicotine dependence, unspecified, uncomplicated
CPT/HCPCS: 36415; 80053; 80306; 80307; 80320; 80329; 81001; 81003; 81025; 83690; 84443; 85025; 87086; 99283; 99285

== ENCOUNTER 2021-09-01 21:55 | Outpatient (CLI) | payer MEDICAID | END 2021-09-01 21:56 | disposition critical access hospital (66) | LOC: EMS 21:55 | DX: R07.89 Other chest pain (principal); R00.2 Palpitations; R11.2 Nausea with vomiting, unspecified | CPT/HCPCS: A0425; A0427; A0999 ==

== ENCOUNTER 2021-09-01 22:18 | Observation (INO) | payer MEDICAID ==
--- OUTSIDE RECORDS SUMMARY | 2021-09-01 22:24 | EXTERNAL MEDICAL SUMMARY RPT | Continuity of Care Document ---
:1990 Author Organization [place] Address [address] [place] [address] Phone Allergies and Intolerances date description facility type (no date) No Known Drug Allergies [facility] (unkn own) Encounters No information. Functional Status No information. Immunizations No information. Medications No information. Problems No information. Procedures date description facility [id number] General Physician [facility] Results/Labs No information. Social History date description facility (no date) Smokes tobacco daily (finding) [facility] Vital Signs No information.
--- NOTE | 2021-09-01 23:13 | XRAY Report ---
PROCEDURE: Chest 1 View X-Ray INDICATIONS: CP TECHNIQUE: One view of the chest was acquired. COMPARISON: FINDINGS: Surgical changes and devices: None. Lungs and pleura: No pleural effusions or pneumothorax. Lungs are clear. Mediastinum: Mediastinal contours appear normal. Heart size is normal. Bones and chest wall: No suspicious bony lesions. Overlying soft tissues appear unremarkable. IMPRESSION: Normal for age, source of current chest pain symptoms is not seen. Reviewed by: Clement Laurent MD on 09/01/2021 11:12 PM PDT Approved by: Clement Laurent MD on 09/01/2021 11:12 PM PDT Station ID: [id number]
[2021-09-02] MEDS ORDERED: LORazepam 2 MG/ML VIAL IVP STA ×2 (00:22→00:32)
[2021-09-02] MEDS ORDERED: LORazepam 2 MG/ML VIAL ONE (00:29)
[2021-09-02 00:40] LABS: BASOPHILS % (AUTO) 0.3 %; EOSINOPHILS # (AUTO) 0.1 10^3/uL (0.0-0.7); EOSINOPHILS % (AUTO) 0.6 %; HCT - HEMATOCRIT 39.6 % (37.0-47.0); HGB - HEMOGLOBIN 13.6 g/dL (12.0-16.0); LYMPHOCYTES # (AUTO) 2.4 10^3/uL (1.5-3.5); LYMPHOCYTES % (AUTO) 23.4 %; MEAN CORPUSCULAR HEMOGLOBIN 31.8 pg (27.0-31.0); MEAN CORPUSCULAR HGB CONC 34.3 g/dL (32.0-36.0); MEAN CORPUSCULAR VOLUME 92.5 fL (81.0-99.0); MEAN PLATELET VOLUME 10.2 fL (7.9-10.8); MONOCYTES # (AUTO) 1.3 10^3/uL (0.0-1.0); MONOCYTES % (AUTO) 12.8 %; NEUTROPHILS # (AUTO) 6.4 10^3/uL (1.5-6.6); NEUTROPHILS % (AUTO) 62.6 %; PLT - PLATELET COUNT 191 10^3/uL (130-450); RED BLOOD COUNT 4.28 10^6/uL (4.20-5.40); RED CELL DISTRIBUTION WIDTH 12.5 % (12.0-15.0); WHITE BLOOD COUNT 10.2 x10^3/uL (4.8-10.8)
[2021-09-02 01:16] LABS: ALBUMIN 4.4 g/dL (3.2-5.5); ALBUMIN/GLOBULIN RATIO 1.3 (1.0-2.2); ALKALINE PHOSPHATASE 49 IU/L (42-121); ALT ALANINE AMINOTRANSFERASE 118 IU/L (10-60); AST ASPARTATE AMINOTRANSFERASE 362 IU/L (10-42); BILIRUBIN,TOTAL 0.9 mg/dL (0.2-1.0); BUN - BLOOD UREA NITROGEN 14 mg/dL (6-20); CALCIUM 9.7 mg/dL (8.5-10.3); CARBON DIOXIDE - CO2 13 mmol/L (21-32); CHLORIDE 102 mmol/L (101-111); ETOH - ETHANOL < 5.0 mg/dL; GFR - MDRD 65 (>89); GLUCOSE 126 mg/dL (70-100); POTASSIUM 2.9 mmol/L (3.5-5.0); SODIUM 138 mmol/L (135-145); TOTAL PROTEIN 7.7 g/dL (6.7-8.2)
--- NOTE | 2021-09-02 01:17 | CT Report ---
PROCEDURE: CERVICAL SPINE WO INDICATIONS: head injury TECHNIQUE: Noncontrast 3 mm thick sections acquired from the skull base to the T4 level. Sagittal and coronal r eformats were then constructed. For radiation dose reduction, the following was used: automated exp osure control, adjustment of mA and/or kV according to patient size. COMPARISON: None. FINDINGS: Image quality: Excellent. Bones: No fractures or dislocations. Visualized superior ribs are intact. Soft tissues: Prevertebral soft tissues are normal in thickness. No paravertebral hematomas. No ap ical pneumothoraces. IMPRESSION: No trauma found. Reviewed by: Clement Laurent MD on 09/02/2021 1:16 AM PDT Approved by: Clement Laurent MD on 09/02/2021 1:16 AM PDT Station ID: [id number]
--- NOTE | 2021-09-02 01:18 | CT Report ---
PROCEDURE: HEAD WO INDICATIONS: head injury TECHNIQUE: Noncontrast 4.5 mm thick angled axial sections acquired from the foramen magnum to the vertex. For r adiation dose reduction, the following was used: automated exposure control, adjustment of mA and/or kV according to patient size. COMPARISON: None. FINDINGS: Image quality: Excellent. CSF spaces: Basal cisterns are patent. No extra-axial fluid collections. Ventricles are normal in size and shape. Brain: No midline shift. No intracranial masses or hemorrhage. Roche-white matter interface is norm al. Skull and face: Calvarium and visualized facial bones are intact, without suspicious lesions. Sinuses: Visualized sinuses and mastoids are clear. IMPRESSION: No trauma found. Reviewed by: Clement Laurent MD on 09/02/2021 1:17 AM PDT Approved by: Clement Laurent MD on 09/02/2021 1:17 AM PDT Station ID: [id number]
[2021-09-02] MEDS ORDERED: SODIUM CHLORIDE 0.9% 1,000 ML IV STA (01:21)
[2021-09-02] MEDS ORDERED: POTASSIUM CHLOR 10 MEQ/100 ML 10 MEQ/100 ML BAG IV STA (01:21)
[2021-09-02] MEDS ORDERED: ONDANSETRON 4 MG/2 ML VIAL IVP PRN (01:41)
[2021-09-02] MEDS ORDERED: SODIUM CHLORIDE FLUSH 0.9% 10 ML SYRINGE IVP PRN (01:41)
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
[2021-09-02] MEDS ORDERED: MAGNESIUM SULFATE 2 GRAM 2 GM/50 ML BAG IV ONE (01:46)
[2021-09-02] MEDS ORDERED: LORazepam 2 MG/ML VIAL IVP PRN (01:46)
[2021-09-02 01:47] LABS: MUDS CUTOFF CONCENTRATIONS CUTOFF CONC BELOW:
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
[2021-09-02] MEDS ORDERED: levETIRAcetam INJ 500 MG in SODIUM CHLORIDE 0.9% 100ML 100 ML IV SCH (02:00)
[2021-09-02] MEDS ORDERED: SODIUM CHLORIDE 0.9% 1,000 ML IV SCH (02:00)
[2021-09-02 02:07] LABS: AMPHETAMINE SCREEN,URINE NEGATIVE (NEGATIVE); BARBITURATE SCREEN,UR NEGATIVE (NEGATIVE); BENZODIAZEPINES SCREEN, URINE NEGATIVE (NEGATIVE); COCAINE SCREEN URINE NEGATIVE (NEGATIVE); METHADONE SCREEN, URINE NEGATIVE (NEGATIVE); METHAMPHETAMINES SCREEN, URINE NEGATIVE (NEGATIVE); OPIATE SCREEN, URINE NEGATIVE (NEGATIVE); OXYCODONE SCREEN, URINE NEGATIVE (NEGATIVE); PROPOXYPHENE SCREEN, URINE NEGATIVE (NEGATIVE); THC CANNABINOID SCREEN, URINE NEGATIVE (NEGATIVE); TRICYCLIC ANTIDEPRESSANT,URINE NEGATIVE (NEGATIVE)
[2021-09-02] MEDS: POTASSIUM CHLOR 10 MEQ/100 ML 10 MEQ/100 ML BAG IV SCH ×4 (05:07→09:10)
[2021-09-02 05:50] LABS: BASOPHILS % (AUTO) 0.1 %; EOSINOPHILS # (AUTO) 0.1 10^3/uL (0.0-0.7); EOSINOPHILS % (AUTO) 0.9 %; HCT - HEMATOCRIT 35.5 % (37.0-47.0); HGB - HEMOGLOBIN 12.4 g/dL (12.0-16.0); LYMPHOCYTES # (AUTO) 1.7 10^3/uL (1.5-3.5); LYMPHOCYTES % (AUTO) 22.6 %; MEAN CORPUSCULAR HGB CONC 34.9 g/dL (32.0-36.0); MEAN CORPUSCULAR VOLUME 91.5 fL (81.0-99.0); MEAN PLATELET VOLUME 10.5 fL (7.9-10.8); MONOCYTES # (AUTO) 0.9 10^3/uL (0.0-1.0); MONOCYTES % (AUTO) 11.6 %; NEUTROPHILS # (AUTO) 4.8 10^3/uL (1.5-6.6); NEUTROPHILS % (AUTO) 64.4 %; PLT - PLATELET COUNT 180 10^3/uL (130-450); RED BLOOD COUNT 3.88 10^6/uL (4.20-5.40); RED CELL DISTRIBUTION WIDTH 12.3 % (12.0-15.0); WHITE BLOOD COUNT 7.4 x10^3/uL (4.8-10.8)
[2021-09-02 06:00] LABS: CALCIUM 8.6 mg/dL (8.5-10.3); CREATININE 0.7 mg/dL (0.4-1.0); POTASSIUM 3.3 mmol/L (3.5-5.0)
[2021-09-02 06:04] LABS: ALBUMIN 3.8 g/dL (3.2-5.5); ALBUMIN/GLOBULIN RATIO 1.4 (1.0-2.2); BILIRUBIN,TOTAL 0.8 mg/dL (0.2-1.0); CALCIUM 8.6 mg/dL (8.5-10.3); CREATININE 0.7 mg/dL (0.4-1.0); POTASSIUM 3.3 mmol/L (3.5-5.0); TOTAL PROTEIN 6.6 g/dL (6.7-8.2)
[2021-09-02] MEDS: chlordiazePOXIDE 25 MG CAPSULE PO SCH ×2 (08:41→17:00)
[2021-09-02] MEDS ORDERED: MULTIVITAMIN 10 ML, THIAMINE INJ 100 MG, FOLIC ACID INJ 1 MG in SODIUM CHLORIDE 0.9% 1,... IV SCH (09:00)
[2021-09-02] MEDS: SODIUM CHLORIDE FLUSH 0.9% 10 ML SYRINGE IVP SCH ×2 (09:11→17:00)
--- NOTE | 2021-09-02 13:59 | PHARMACY PROGRESS NOTE ---
- Best Possible Medication History Admit Date and Time: 09/02/21 0141 Processed by: Pharmacy Medication History completed: Yes Patient Interview: Completed Secondary Source(s): Insurance records As the person ultimately responsible for medication therapy, providers are able to order a medication from an existing home medication list in [facility] via the "Reconcile Routine" prior to Confirmation of that medication by application support technician. Such practice is discouraged except when the physician, in their clinical judgment, deems that a medical need exists for a medication without regard to previous use.
--- NOTE | 2021-09-02 18:41 | PROVIDER PROGRESS NOTE ---
Hospitalist Cross-cover Note - Cross-Cover Note Cross-Cover Note: Patient reports feeling much better. She states that she was having auditory and visual hallucinations while at home. She came to the emergency department because of the seizure and chest pain. She states that the first time she had a seizure and that her last alcoholic beverage was 1 week ago. We discussed the importance of alcohol cessation given she has evidence of alcoholic hepatitis. She expressed understanding and stated she is motivated to quit alcohol. We discussed a telepsych consult given her multiple ER visits for the hallucinations and she was agreeable to this. An order has been placed for a telepsych consult. We also discussed that she cannot drive for at least 6 months given the seizures. We also discussed given this is the first time she has had seizures and it may be related to her alcohol use that we will not use any antiepileptics. Keppra was therefore discontinued. We discussed if she does have another seizure then she will need antiepileptics.
[2021-09-03] MEDS: chlordiazePOXIDE 25 MG CAPSULE PO SCH (00:20)
[2021-09-03] MEDS: SODIUM CHLORIDE FLUSH 0.9% 10 ML SYRINGE IVP SCH ×2 (00:21→08:15)
[2021-09-03 04:36] LABS: BASOPHILS % (AUTO) 0.4 %; EOSINOPHILS # (AUTO) 0.2 10^3/uL (0.0-0.7); EOSINOPHILS % (AUTO) 2.8 %; HCT - HEMATOCRIT 36.5 % (37.0-47.0); LYMPHOCYTES % (AUTO) 36.9 %; MEAN CORPUSCULAR HEMOGLOBIN 32.2 pg (27.0-31.0); MEAN CORPUSCULAR HGB CONC 35.6 g/dL (32.0-36.0); MEAN CORPUSCULAR VOLUME 90.3 fL (81.0-99.0); MEAN PLATELET VOLUME 9.9 fL (7.9-10.8); MONOCYTES # (AUTO) 0.6 10^3/uL (0.0-1.0); MONOCYTES % (AUTO) 11.8 %; NEUTROPHILS # (AUTO) 2.6 10^3/uL (1.5-6.6); NEUTROPHILS % (AUTO) 47.9 %; PLT - PLATELET COUNT 192 10^3/uL (130-450); RED BLOOD COUNT 4.04 10^6/uL (4.20-5.40); RED CELL DISTRIBUTION WIDTH 12.4 % (12.0-15.0); WHITE BLOOD COUNT 5.4 x10^3/uL (4.8-10.8)
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
[2021-09-03] MEDS ORDERED: QUEtiapine 25 MG TABLET PO PRN (04:49)
[2021-09-03] MEDS ORDERED: hydrOXYzine PAMOATE 25 MG CAPSULE PO PRN (04:50)
[2021-09-03 04:59] LABS: ALBUMIN 3.9 g/dL (3.2-5.5); BILIRUBIN,DIRECT 0.2 mg/dL (0.1-0.5); BILIRUBIN,TOTAL 0.8 mg/dL (0.2-1.0); CREATININE 0.7 mg/dL (0.4-1.0); MAGNESIUM 1.9 mg/dL (1.7-2.8); POTASSIUM 3.3 mmol/L (3.5-5.0); TOTAL PROTEIN 6.8 g/dL (6.7-8.2)
[2021-09-03] MEDS ORDERED: POTASSIUM CHLORIDE 20 MEQ/15 ML UDC PO SCH (08:00)
[2021-09-03] MEDS ORDERED: MULTIVITAMIN TABLET PO SCH (08:00)
[2021-09-03] MEDS ORDERED: SERTRALINE 50 MG TABLET PO SCH (09:00)
[2021-09-03] MEDS ORDERED: THIAMINE 100 MG TABLET PO SCH (09:00)
[2021-09-03] MEDS ORDERED: chlordiazePOXIDE 25 MG CAPSULE PO SCH (09:00)
--- NOTE | 2021-09-03 09:12 | Discharge Plan ---
Discharge Plan Problem Reviewed?: Yes Disposition: Home, Self Care Condition: Stable Prescriptions: chlordiazePOXIDE [Librium] 25 mg PO HS #2 cap Potassium Chloride Oral Soln [Potassium Chloride] 20 meq PO DAILYWM 30 Days #1 bottle QUEtiapine [SEROquel] 25 mg PO QPM PRN #30 tablet PRN Reason: Insomnia Thiamine [Vitamin B-1] 100 mg PO DAILY #30 tablet Sertraline [Zoloft] 50 mg PO DAILY #30 tablet Diet: Regular Activity Restrictions: Activity as Tolerated Driving Restrictions: Yes (No driving for 6 months and until cleared by physician because of seizure.) Health Concerns: You were admitted to the hospital because of a seizure. This was felt to be secondary to your use of alcohol. CT scanning of your head showed no abnormalities. You have not had any further seizures since hospitalized. You had chest pain but there was no evidence of heart disease. Your pain is likely due to costochondritis which is inflammation of the cartilage in your chest wall. You may continue to take Tylenol as needed for pain but please limit this to maximum 4000 mg in one day. You should highly consider no more alcohol consumption given you already have evidence of liver inflammation. Plan of Treatment: You were seen by a psychiatrist who recommended that we start you on Zoloft 50 mg once a day. We will also start you on Seroquel 25 mg in the evening as needed to help with sleep. You may also continue with the hydroxyzine as needed. The new prescriptions were sent to your pharmacy. Your potassium has been a little low so we are prescribing you potassium to take once a day at home. Please refrain from further alcohol consumption as you already have evidence of liver inflammation. The alcohol was likely the cause of your seizure. You cannot drive for at least 6 months and until cleared by a physician because of the seizure. We will also prescribe you Librium to take 1 more dose this evening and then 1 more dose tomorrow night. This is to complete the treatment for suspected alcohol withdrawal. If you have another seizure in the future then please come back to the emergency department as you would need seizure medication. Assessment: Patient expressed understanding of the treatment plan. Additional Instructions or Follow Up instructions: Please follow-up with your primary care physician in 1 to 2 weeks. You should follow-up with a psychiatrist on an outpatient basis and continue to follow-up with your therapist. We highly encourage you to refrain from further alcohol consumption. Please return to the emergency department if you develop any suicidal thoughts, seizures or chest pain. No Smoking: If you smoke, Please STOP! Call for help. Follow-up with: Sangeeta Connors PA-C [Primary Care Provider] -
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
[2021-09-03 11:03] VITALS: BP 120/72
== END 2021-09-03 12:39 | disposition home or self-care (01) ==
LOC: ED 22:18 → MS3 09-02 01:41
PROVIDERS: ADMIT Internal Medicine; ATTEND Internal Medicine
DX: F10.139 Alcohol abuse with withdrawal, unspecified (principal); R07.9 Chest pain, unspecified; F32.A Depression, unspecified; F41.9 Anxiety disorder, unspecified; F17.200 Nicotine dependence, unspecified, uncomplicated; F19.10 Other psychoactive substance abuse, uncomplicated; R00.0 Tachycardia, unspecified; E87.6 Hypokalemia; K70.10 Alcoholic hepatitis without ascites; R77.8 Other specified abnormalities of plasma proteins; J45.909 Unspecified asthma, uncomplicated; S09.90XA Unspecified injury of head, initial encounter; W22.8XXA Striking against or struck by other objects, initial encounter; Y92.238 Other place in hospital as the place of occurrence of the external cause; Z20.822 Contact with and (suspected) exposure to COVID-19
CPT/HCPCS: 36415; 70450; 71045; 72125; 80048; 80053; 80076; 80306; 80320; 83735; 84484; 85025; 87635; 93005; 96365; 96366; 96367; 96368; 96375; 99406; A9270; G0378; J2060; J3411; Q3014

== ENCOUNTER 2023-02-09 21:50 | Outpatient (CLI) | payer MEDICAID | END 2023-02-09 23:59 | disposition critical access hospital (66) | LOC: EMS 21:50 | DX: S09.90XA Unspecified injury of head, initial encounter (principal); R41.82 Altered mental status, unspecified; W18.30XA Fall on same level, unspecified, initial encounter; Y92.002 Bathroom of unspecified non-institutional (private) residence as the place of occurrence of the external cause; F10.129 Alcohol abuse with intoxication, unspecified | CPT/HCPCS: A0425; A0429; A0999 ==

== ENCOUNTER 2023-02-09 22:11 | Emergency (ER) | payer MEDICAID, OTHER ==
--- NOTE | 2023-02-09 22:20 | ED Physician Documentation ---
PD HPI Fall - Stated complaint Stated Complaint: FALL/SYNCOPE - History obtained from History obtained from: Patient, Family (mother of patient) - Additional information Additional information: BIBA. HPI from patient and patient's mother who have different versions of tonight's events. Patient says she fell tonight due to losing her balance while using crutches at home. This was at approximately 7 PM tonight. Patient says she is using crutches due to left foot fracture diagnosed a few months ago. Patient c/o occipital headache. She is unsure of LOC. HPI from patient is limited due to anxiety, tangential answers. She repeatedly tries to scoot down towards the foot of the stretcher but is amenable to my requests that she stay on the stretcher to facilitate the physical exam and minimize movement of neck until appropriate testing can be undertaken to ensure no serious injuries. Patient's mother says she was helping patient to ambulate to the bathroom to take a bath when patient went to ground. Mother of patient says patient did not fall nor trip and it is also unclear if she thinks there was LOC. She did not witness any seizure-like activity. She says she then called 911 because patient is too heavy for her to have helped her back off of the floor. She also says patient has been having problems with recently diagnosed right foot fracture (patient then again says it was her left foot that was injured). Review of Systems Eyes: denies: Loss of vision, Decreased vision Cardiac: denies: Chest pain / pressure, Palpitations Respiratory: denies: Dyspnea, Cough GI: denies: Abdominal Pain, Nausea, Vomiting PD PAST MEDICAL HISTORY - Past Medical History Cardiovascular: None Respiratory: Asthma Neuro: None Endocrine/Autoimmune: None GI: None : None Psych: Depression, Anxiety Musculoskeletal: None Derm: Psoriasis - Past Surgical History Past Surgical History: Yes - Present Medications Home Medications: Ambulatory Orders Medication Instructions Recorded Confirmed Albuterol Sulf [Ventolin Hfa 1 - 2 puffs INH Q4HR PRN #1 inhaler 12/24/17 09/02/21 Inhaler] Cholecalciferol [Vitamin D3] 5,000 units PO DAILY 09/02/21 09/02/21 Clobetasol 0.05% Oint [Temovate 1 applic TOP DAILY PRN 09/02/21 09/02/21 0.05% Oint] Loratadine [Claritin] 10 mg PO DAILY PRN 09/02/21 09/02/21 Multivit-Min/Folic Acid/Biotin 2 tab PO DAILY 09/02/21 09/02/21 [Women Multivit W-Biotin Gummy] Multivit-Min/Iron/Folic/Qtm814 2 tab PO DAILY 09/02/21 09/02/21 [Hair, Skin and Nails Tablet] [place]-3 Acid Ethyl Esters [Lovaza] 1 cap PO DAILY 09/02/21 09/02/21 Vitamin B Complex 1 tab PO DAILY 09/02/21 09/02/21 Vitamin E 400 unit PO DAILY 09/02/21 09/02/21 cloNIDine [Catapres] 0.1 mg PO TID 09/02/21 09/02/21 hydrOXYzine pamoate [Hydroxyzine 50 mg PO QID PRN 09/02/21 09/02/21 Pamoate] methocarbamoL [Methocarbamol] 500 mg PO QPM PRN 09/02/21 09/02/21 Potassium Chloride Oral Soln 20 meq PO DAILYWM 30 Days #1 bottle 09/03/21 [Potassium Chloride] QUEtiapine [SEROquel] 25 mg PO QPM PRN #30 tablet 09/03/21 Sertraline [Zoloft] 50 mg PO DAILY #30 tablet 09/03/21 Thiamine [Vitamin B-1] 100 mg PO DAILY #30 tablet 09/03/21 chlordiazePOXIDE [Librium] 25 mg PO HS #2 cap 09/03/21 - Allergies Allergies/Adverse Reactions: Allergies Allergy/AdvReac Type Severity Reaction Status Date / Time No Known Drug Allergies Allergy Verified 02/09/23 22:20 - Social History Does the pt smoke?: Yes Smoking Status: Current every day smoker Does the pt drink ETOH?: Yes Does the pt have substance abuse?: No - Immunizations Immunizations are current?: Yes - POLST Patient has POLST: No PD ED PE NORMAL - Vitals Vital signs reviewed: Yes - General General: Alert and oriented X 3, Well developed/nourished, Other (anxious, hyperventilating and tearful at times but amenable to verbal reassurance) - HEENT HEENT: Atraumatic, PERRL, EOMI, Other (no tongue bite/laceration/echymosis) - Neck Neck: No bony TTP - Cardiac Cardiac: RRR, No murmur - Respiratory Respiratory: No respiratory distress, Clear bilaterally - Abdomen Abdomen: Soft, Non tender - Back Back: No spinal TTP - Neuro Neuro: Alert and oriented X 3, technician support association 2-12 intact, No motor deficit, No sensory deficit, Normal speech Eye Opening: Spontaneous Motor: Obeys Commands Verbal: Oriented GCS Score: 15 PD ED PE EXPANDED - Psych Psych: Intoxicated / AOB, Tearful, Anxious Results - Vitals Vitals: Oxygen O2 Source Room air - Labs Labs: Laboratory Tests 02/09/23 02/09/23 02/09/23 22:20 22:20 23:10 WBC 3.2 L RBC 4.32 Hgb 14.0 Hct 40.9 MCV 94.7 MCH 32.4 H MCHC 34.2 RDW 14.8 Plt Count 170 MPV 10.4 Neut # (Auto) 1.7 Lymph # (Auto) 0.9 L [place] # (Auto) 0.6 Eos # (Auto) 0.0 Baso # (Auto) 0.0 Absolute Nucleated RBC 0.00 Nucleated RBC % 0.0 Sodium 141 Potassium 4.3 Chloride 99 L Carbon Dioxide 22 Anion Gap 20.0 H BUN 13 Creatinine 0.7 Estimated GFR (MDRD) 97 Glucose 114 H Calcium 9.4 Total Bilirubin 0.7 AST 414 H ALT 136 H Alkaline Phosphatase 66 Total Protein 7.5 Albumin 4.4 Globulin 3.1 Albumin/Globulin Ratio 1.4 Lipase 503 H Urine Color DARK YELLOW Urine Clarity HAZY Urine pH 6.0 Ur Specific [place] >=1.030 H Urine Protein >=300 H Urine Glucose (UA) NEGATIVE Urine Ketones >=80 H Urine Occult Blood SMALL H Urine Nitrite POSITIVE H Urine Bilirubin SMALL H Urine Urobilinogen 1 (NORMAL) Ur Leukocyte Esterase NEGATIVE Urine RBC 0-5 Urine WBC 4-5 Ur Squamous Epith Cells MANY Squamous H Urine Bacteria Many H Ur Microscopic Review INDICATED Urine Culture Comments NOT INDICATED Urine HCG, Qual NEGATIVE Urine Opiates Screen NEGATIVE Ur Buprenorphine Scrn NEGATIVE Ur Oxycodone Screen NEGATIVE Urine Methadone Screen NEGATIVE Ur Barbiturates Screen NEGATIVE Ur Tricyclics Screen NEGATIVE Ur Phencyclidine Scrn NEGATIVE Ur Amphetamine Screen NEGATIVE U Methamphetamines Scrn NEGATIVE U Benzodiazepines Scrn NEGATIVE Urine Cocaine Screen NEGATIVE U Cannabinoids Screen POSITIVE H Ur Drug Screen Comment CUTOFF CONC BELOW: Ethyl Alcohol 415.6 - Rads (name of study) CTH Relevant Findings:: Prelim report reviewed, See rad report CT cervical spine Relevant Findings:: Prelim report reviewed, See rad report PD Medical Decision Making - ED course Complexity details: reviewed old records, reviewed results, re-evaluated patient, considered differential, d/w patient ED course: Unremarkable CTH, CT cervical spine. These were undertaken due to possible fall, although as noted in HPI, patient's HPI is inconsistent with that of her mother. Significant results on blood tests include serum ethanol level 415, elevated AST and ALT, lipase (503), and UDS positive for cannabinoids. After initial H+P, I advised patient that she appears very anxious and I recommend IV lorazepam to which she is agreeable. She is unsure if she has had this medication before. In reviewing previous ED records, I see that she has been here before for alcohol withdrawal (I saw patient for this c/o in 2017, and she had three [facility] ED visits in August 2021 for alcohol-related issues; she was admitted for alcohol -withdrawal seizures on the third visit in August 2021. Her AST and ALT were elevated on these visits in 2021). She has mild leukopenia (wbc 3.2). These findings are concerning for consequences of alcoholism and I discussed these results and concerns with her. On reevaluation, she is calm repo rts feeling much improved. She is mildly tremulous, however, and she is thus given 2mg PO lorazepam prior to discharge. I advised her to follow up with PCP to discuss management of her alcoholism, and return precautions were carefully reviewed. Incidental finding of UA macroscopic findings s/o UTI but no wbc nor RBC on microscopy; there are bacteria on micro but many squamous cells , as well. Pat ient denies symptoms of UTI (frequency, dysuria). Urine HCG is negative. Departure - Departure Disposition: 01 Home, Self Care Clinical Impression: Alcoholic intoxication Qualifiers: Complication of substance-induced condition: uncomplicated Qualified Code(s): F10.920 - Alcohol use, unspecified with intoxication, uncomplicated Condition: Good Instructions: ED Alcohol Intoxication Comments: As we discussed, the most concerning finding on tonight's tests is your blood alcohol level was particularly high. Your liver function tests were also abnormal (elevated). You should follow-up with your primary care provider, next available appointment, for reevaluation and to discuss your alcohol intake and how to quit. Forms: PCP List Discharge Date/Time: 02/10/23 03:15
[2023-02-09] MEDS ORDERED: LORazepam 2 MG/ML VIAL IVP STA (22:29)
[2023-02-09] MEDS ORDERED: SODIUM CHLORIDE 0.9% 1,000 ML IV STA (22:30)
[2023-02-09 22:37] LABS: BASOPHILS % (AUTO) 1.3 %; EOSINOPHILS % (AUTO) 0.6 %; HCT - HEMATOCRIT 40.9 % (37.0-47.0); LYMPHOCYTES # (AUTO) 0.9 10^3/uL (1.5-3.5); LYMPHOCYTES % (AUTO) 28.2 %; MEAN CORPUSCULAR HEMOGLOBIN 32.4 pg (27.0-31.0); MEAN CORPUSCULAR HGB CONC 34.2 g/dL (32.0-36.0); MEAN CORPUSCULAR VOLUME 94.7 fL (81.0-99.0); MEAN PLATELET VOLUME 10.4 fL (7.9-10.8); MONOCYTES # (AUTO) 0.6 10^3/uL (0.0-1.0); MONOCYTES % (AUTO) 17.4 %; NEUTROPHILS # (AUTO) 1.7 10^3/uL (1.5-6.6); NEUTROPHILS % (AUTO) 52.2 %; PLT - PLATELET COUNT 170 10^3/uL (130-450); RED BLOOD COUNT 4.32 10^6/uL (4.20-5.40); RED CELL DISTRIBUTION WIDTH 14.8 % (12.0-15.0); WHITE BLOOD COUNT 3.2 x10^3/uL (4.8-10.8)
[2023-02-09 22:49] LABS: ALBUMIN 4.4 g/dL (3.2-5.5); ETOH - ETHANOL 415.6 mg/dL
[2023-02-09 23:03] LABS: ALBUMIN/GLOBULIN RATIO 1.4 (1.0-2.2); BILIRUBIN,TOTAL 0.7 mg/dL (0.2-1.0); CALCIUM 9.4 mg/dL (8.5-10.3); CREATININE 0.7 mg/dL (0.6-1.3); POTASSIUM 4.3 mmol/L (3.5-4.5); TOTAL PROTEIN 7.5 g/dL (6.4-8.9)
[2023-02-09 23:17] LABS: GLUCOSE, URINE (UA) NEGATIVE (NEGATIVE); KETONES,URINE (UA) >=80 mg/dL (NEGATIVE); LEUKOCYTE ESTERASE, URINE NEGATIVE (NEGATIVE); NITRITE,URINE POSITIVE (NEGATIVE); OCCULT BLOOD,URINE SMALL (NEGATIVE); PROTEIN,URINE >=300 mg/dL (NEGATIVE); UROBILINOGEN,URINE 1 (NORMAL) E.U./dL (NORMAL)
[2023-02-09 23:21] LABS: BILIRUBIN,URINE SMALL (NEGATIVE); CLARITY,URINE HAZY (CLEAR); HCG UR QUAL NEGATIVE; ICTOTEST,URINE POSITIVE
[2023-02-09 23:35] LABS: BACTERIA,URINE Many /HPF (None Seen); RBC,URINE 0-5 /HPF (0-5); SQUAMOUS EPITHELIAL CELL,UR MANY Squamous (<= Few)
[2023-02-09 23:36] LABS: THC CANNABINOID SCREEN, URINE POSITIVE (NEGATIVE)
[2023-02-09 23:37] LABS: AMPHETAMINE SCREEN,URINE NEGATIVE (NEGATIVE); BARBITURATE SCREEN,UR NEGATIVE (NEGATIVE); BENZODIAZEPINES SCREEN, URINE NEGATIVE (NEGATIVE); BUPRENORPHINE SCREEN, URINE NEGATIVE (NEGATIVE); COCAINE SCREEN URINE NEGATIVE (NEGATIVE); METHADONE SCREEN, URINE NEGATIVE (NEGATIVE); METHAMPHETAMINES SCREEN, URINE NEGATIVE (NEGATIVE); OPIATE SCREEN, URINE NEGATIVE (NEGATIVE); OXYCODONE SCREEN, URINE NEGATIVE (NEGATIVE); TRICYCLIC ANTIDEPRESSANT,URINE NEGATIVE (NEGATIVE)
--- NOTE | 2023-02-10 00:07 | CT Report ---
PROCEDURE: HEAD WO INDICATIONS: possible fall, AMS TECHNIQUE: Noncontrast 4.5 mm thick angled axial sections acquired from the foramen magnum to the vertex. For r adiation dose reduction, the following was used: automated exposure control, adjustment of mA and/or kV according to patient size. COMPARISON: 09/02/2021. Correlation is made with the accompanying cervical spine CT. FINDINGS: Image quality: Excellent. CSF spaces: Basal cisterns are patent. No extra-axial fluid collections. Ventricles are normal in size and shape. Brain: No midline shift. No intracranial masses or hemorrhage. Roche-white matter interface is norm al. Skull and face: Calvarium and visualized facial bones are intact, without suspicious lesions. Incid ental note is made of body ornamentation artifact. Sinuses: Visualized sinuses and mastoids are clear. IMPRESSION: No intracranial hemorrhage is seen. No acute intracranial pathology. Reviewed by: Gian Peña MD on 02/09/2023 11:05 PM [facility] Approved by: Gian Peña MD on 02/09/2023 11:05 PM [facility] Station ID: [id number]
--- NOTE | 2023-02-10 00:08 | CT Report ---
PROCEDURE: CERVICAL SPINE WO INDICATIONS: possible fall, AMS TECHNIQUE: Noncontrast 3 mm thick sections acquired from the skull base to the T4 level. Sagittal and coronal r eformats were then constructed. For radiation dose reduction, the following was used: automated exp osure control, adjustment of mA and/or kV according to patient size. COMPARISON: 09/02/2021. Correlation is also made with the accompanying head CT. FINDINGS: Image quality: Excellent. Bones: No fractures or dislocations. Visualized superior ribs are intact. Soft tissues: Prevertebral soft tissues are normal in thickness. No paravertebral hematomas. No ap ical pneumothoraces. IMPRESSION: No cervical spine fracture. Reviewed by: Gian Peña MD on 02/09/2023 11:07 PM [facility] Approved by: Gian Peña MD on 02/09/2023 11:07 PM [facility] Station ID: [id number]
[2023-02-10] MEDS ORDERED: LORazepam 0.5 MG TABLET PO STA (02:55)
[2023-02-10 03:29] VITALS: BP 125/92; O2SAT 97
== END 2023-02-10 03:15 | disposition home or self-care (01) ==
LOC: EDUNIT# → ED 22:11
DX: F10.120 Alcohol abuse with intoxication, uncomplicated (principal); Y90.8 Blood alcohol level of 240 mg/100 ml or more; F17.200 Nicotine dependence, unspecified, uncomplicated; Z79.899 Other long term (current) drug therapy
CPT/HCPCS: 36415; 80053; 80306; 80320; 81001; 81003; 81025; 83690; 85025; 87086; 96374; 99284